=== PATIENT | female | born 1980 | race African-American/Black ===

== ENCOUNTER 2016-08-31 05:00 | Day surgery (SDC) | payer OTHER ==
[2016-08-30 11:15] VITALS: BMI 35.2
[2016-08-31] MEDS ORDERED: BUPIVACAINE HCL/PF 0.5% (5MG/ML) 10 ML VIAL ONE (08:56)
[2016-08-31] MEDS ORDERED: LIDOCAINE 1%/EPI 1:100000 (50 ML MULTI DOSE VIAL) ONE (08:56)
[2016-08-31 11:18] VITALS: TEMP 98.4
[2016-08-31] MEDS ORDERED: MIDAZOLAM HCL 2 MG/2 ML SINGLE DOSE VIAL ONE ×2 (13:07→13:47)
[2016-08-31] MEDS ORDERED: PROPOFOL 20 ML ONE (13:07)
--- NOTE | 2016-08-31 13:26 | HP ---
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) - Admission Chief Complaint: hammertoes History of Present Illness: patient reports pain in shoes that has not been relieved by accommodation History Source: Medical Record (Medical history deferred to the pcp) - Past Medical History ...LMP Comment: on depoprovera Musculoskeletal: Yes: Other (prominent 5th proximal phalangeal head with hyperkeratosis present bilaterally) - Smoking History Smoking history: Never smoked Have you smoked in the past 12 months: No - Alcohol/Substance Use Hx Alcohol Use: No Home Medications - Allergies Allergies/Adverse Reactions: Allergies Allergy/AdvReac Type Severity Reaction Status Date / Time No Known Drug Allergies Allergy Verified 08/30/16 11:10 latex AdvReac Itching Verified 08/30/16 11:10 - Home Medications Home Medications: Ambulatory Orders NK [No Known Home Medication] 08/30/16 Physical Examination Vital Signs: Vital Signs Temperature 98.4 F 08/31/16 11:11 Pulse Rate 90 08/31/16 11:11 Respiratory Rate 18 08/31/16 11:11 Blood Pressure 123/70 08/31/16 11:11 O2 Sat by Pulse Oximetry (%) 98 08/31/16 11:18 Assessment/Plan Assessment bilateral 5th hammertoes Plan Arthroplasty bilateral 5th hammertoes
[2016-08-31] MEDS ORDERED: LIDOCAINE 1%/EPI 1:100000 (50 ML MULTI DOSE VIAL) INF ONE ×2 (14:00)
[2016-08-31] MEDS ORDERED: BUPIVACAINE HCL/PF 0.5% (5MG/ML) 10 ML VIAL IJ ONE ×2 (14:00)
[2016-08-31 17:16] VITALS: BP 124/72; PULSE 76
--- NOTE | 2016-09-01 08:40 | OP ---
DATE OF OPERATION: 08/31/2016 SURGEON: Coel Daniels DPM PREOPERATIVE DIAGNOSIS: Bilateral 5th hammer toes. POSTOPERATIVE DIAGNOSIS: Bilateral 5th hammer toes. PROCEDURE: Bilateral 5th toe arthroplasty head of the proximal phalanx bilateral 5th toes. DESCRIPTION OF PROCEDURE: Under fractional anesthesia and a surgical scrub with Betadine scrub and solution x2, the patient was draped using sterile technique. Inspection of bilateral 5th toes showed a relatively rectus toe with a prominent phalangeal head and overlying dorsolateral hyperkeratosis. Using a No. 15 surgical blade, a linear longitudinal incision was made over the proximal interphalangeal joint of bilateral 5th toes. The incisions were deepened through skin and fascia, and they were retracted. A transverse capsulotomy was performed at the proximal interphalangeal joint, and interphalangeal ligaments were cut. The extensor tendon was reflected proximally and distally, and the head of the proximal phalanx was delivered into the wound. These were resected using bone cutting forceps. The wounds were irrigated with sterile saline and then the extensor tendon was reapproximated and sutured with 4-0 Vicryl suture. Skin and subcutaneous tissue were reapproximated into normal anatomic position as a single layer and sutured with 4-0 Prolene simple interrupted sutures. Bilateral dressings were applied to the 5th toes. The patient tolerated the surgical procedure well and left the operating room stable, awake, alert, and in no pain. TYLER BRISENO/[id number]
--- NOTE | 2016-09-04 13:45 | PATH ---
Surgical Pathology Report Patient Name: SONYA DELONG [facility]. Rec. #: [id number] /Age/Gender: 1980 (Age: 35) / F Account: [id number] Location: [facility] Taken: 08/31/2016 Received: 09/03/2016 Reported: 09/04/2016 Physicians: Cole Daniels M.D. Specimen(s) Received A: BONE RIGHT 5TH TOE B: BONE LEFT 5TH TOE Clinical History Hammer toes bilateral fifth Final Diagnosis A. BONE, RIGHT FIFTH TOE, EXCISION: BENIGN BONE AND ARTICULAR CARTILAGE B. BONE, LEFT FIFTH TOE, EXCISION: BENIGN BONE AND ARTICULAR CARTILAGE Electronically Signed Ortiz Segundo M.D. Gross Description A. Received in formalin, labeled "bone right fifth toe," is a 0.8 x 0.8 x 0.3 cm shaffer, irregular portion of bone. The specimen is trisected and entirely submitted in one cassette, following decalcification. B. Received in formalin, labeled "bone left fifth toe," is a 1.0 x 0.8 x 0.4 cm shaffer, irregular portion of bone. The specimen is trisected and entirely submitted in one cassette, following decalcification. 09/03/201609/03/2016
== END 2016-08-31 18:20 | disposition home or self-care (01) ==
LOC: JASU-SURG 05:00
PROVIDERS: ATTEND Podiatrist Foot Surgery
PROC: 0SNP0ZZ Release Right Toe Phalangeal Joint, Open Approach (ICD-10-PCS; 2016-08-31)
PROC: 0SNQ0ZZ Release Left Toe Phalangeal Joint, Open Approach (ICD-10-PCS; principal; 2016-08-31 12:30)
DX: M20.41 Other hammer toe(s) (acquired), right foot (principal); M20.42 Other hammer toe(s) (acquired), left foot
CPT/HCPCS: 73630-TC-LT; 73630-TC-RT; 84703; 88304-TC; 88311-TC